=== PATIENT | female | born 1955 | race Caucasian/White ===

== ENCOUNTER → 2021-02-12 | Day surgery (SDC) | payer MEDICARE ==
[~2021-02-12] MED LIST: ALENDRONATE SOD70 MG PO; LIPITOR10 MG PO; MIRAPEX0.25 MG PO; NEURONTIN300 MG PO; OR PHACO EYE KIT ONE; PREOP PHACO EYE KIT ONE; VESICARE5 MG PO; VITAMIN D3 PO
[2021-02-12 11:35] VITALS: BP 118/68
== END | disposition home or self-care (01) ==
LOC: OR 09:18
PROVIDERS: ATTEND Ophthalmology
DX: H25.12 Age-related nuclear cataract, left eye (principal); E56.9 Vitamin deficiency, unspecified; E78.5 Hyperlipidemia, unspecified; M81.0 Age-related osteoporosis without current pathological fracture; Z84.89 Family history of other specified conditions; Z82.49 Family history of ischemic heart disease and other diseases of the circulatory system; Z83.3 Family history of diabetes mellitus; Z80.0 Family history of malignant neoplasm of digestive organs; G35 Multiple sclerosis; Z01.812 Encounter for preprocedural laboratory examination; Z20.822 Contact with and (suspected) exposure to COVID-19
CPT/HCPCS: 66984; U0002; V2632